=== PATIENT | female | born 1985 | race Caucasian/White ===

== ENCOUNTER → 2019-10-20 | Outpatient (CLI) | payer BC ==
[2019-10-20 17:15] LABS: Basophils # (A) 0.1 k/uL (0-0.2); Basophils % (A) 1 %; Eosinophils # (A) 0.1 k/uL (0-0.7); Eosinophils % (A) 2 %; HCT 43.3 % (34.0-46.0); HGB 14.1 gm/dL (11.4-16.0); Lymphocytes % (A) 33 %; MCH 30.4 pg (25.0-35.0); MCHC 32.7 g/dL (31.0-37.0); MCV 92.9 fL (80.0-100.0); Mean Platelet Volume 6.8; Monocytes # (A) 0.3 k/uL (0-1.0); Monocytes % (A) 5 %; Neutrophils # (A) 3.4 k/uL (1.3-7.7); Neutrophils % (A) 57 %; Platelet Count 338 k/uL (150-450); RBC 4.66 m/uL (3.80-5.40); RDW 12.3 % (11.5-15.5); WBC 5.9 k/uL (3.8-10.6)
== END ==
LOC: LABWHC1 16:38
PROVIDERS: ATTEND Obstetrics & Gynecology
DX: Z01.812 Encounter for preprocedural laboratory examination (principal)
CPT/HCPCS: 36415; 85025

== ENCOUNTER → 2019-11-24 | Outpatient (CLI) | payer BC ==
[2019-11-24 14:48] LABS: Basophils % (A) 1 %; Eosinophils # (A) 0.1 k/uL (0-0.7); Eosinophils % (A) 3 %; HCT 43.7 % (34.0-46.0); HGB 14.2 gm/dL (11.4-16.0); Lymphocytes # (A) 1.7 k/uL (1.0-4.8); Lymphocytes % (A) 36 %; MCH 31.4 pg (25.0-35.0); MCHC 32.6 g/dL (31.0-37.0); MCV 96.4 fL (80.0-100.0); Mean Platelet Volume 6.9; Monocytes # (A) 0.2 k/uL (0-1.0); Monocytes % (A) 4 %; Neutrophils # (A) 2.5 k/uL (1.3-7.7); Neutrophils % (A) 53 %; Platelet Count 280 k/uL (150-450); RBC 4.53 m/uL (3.80-5.40); RDW 12.5 % (11.5-15.5); WBC 4.6 k/uL (3.8-10.6)
== END | disposition home or self-care (01) ==
LOC: LABPAT 11-20 08:39
PROVIDERS: ATTEND Obstetrics & Gynecology
DX: Z01.812 Encounter for preprocedural laboratory examination (principal); O02.1 Missed abortion
CPT/HCPCS: 84702; 85025

== ENCOUNTER → 2019-11-25 | Day surgery (SDC) | payer BC ==
[2019-11-21 14:55] VITALS: BMI 18.2
--- NOTE | 2019-11-24 16:27 | HP ---
HISTORY AND PHYSICAL REASON FOR ADMISSION: Date of surgery is 11/25/2019. HISTORY: This is a 34-year-old 3, para 1-0-2-1 woman who desires permanent sterility. She is going to undergo a bilateral laparoscopic tubal occlusion with Filshie clips. She has been counseled extensively on other methods of long-term contraception and declines at this time. ALLERGY: PENICILLIN CAUSES RASH. MEDICATIONS: None. PAST MEDICAL HISTORY: Anemia, scoliosis, and esophageal ulcer. PAST SURGICAL HISTORY: EGD in 2012. Suction D and C 2015, cervical LEEP procedure 2017. PARALEGAL PAST HISTORY: She is a 3, para 1-0-2-1 with history of 1 term vaginal delivery and 1 missed AB with D and C and 1 spontaneous AB. She has a history of abnormal Pap smear in the past. No STDs. SOCIAL HISTORY: Negative for tobacco, alcohol, and drug use. She is single. FAMILY HISTORY: Significant for diabetes in a grandfather. REVIEW OF SYSTEMS: A 12-point review of systems negative. PHYSICAL EXAM: Vital signs: Height 5 feet, 8 inches, weight 122 pounds, blood pressure 102/70, heart rate 80. In general, a pleasant, slim female in no obvious distress. HEENT exam is unremarkable for no palpable lymphadenopathy or thyromegaly. CARDIOVASCULAR EXAM: Unremarkable for any detectable murmur. The heart is of regular rate and rhythm. The lungs are clear to auscultation bilaterally. On abdominal exam, the abdomen is slim, soft and nontender with no rebound, no guarding. On pelvic examination, she has normal female external genitalia without lesions or irritation. On bimanual examination, the uterus is small, freely mobile, and there are no adnexal abnormalities. Neurologic exam is grossly intact with no focal deficits. ASSESSMENT: 34-year-old 3, para 1-0-2-1 woman who desires permanent contraception. She is scheduled to undergo laparoscopic bilateral tubal occlusion with Filshie clips. Risks, benefits, and alternatives have been reviewed with the patient in detail. Risks include, but are not limited to, bleeding, transfusion, laparotomy, infection, damage to bowel, bladder, ureters and/or other pelvic and intraabdominal structures, tubal ligation failure, , ectopic . The patient understands these risks and agrees to proceed. She is scheduled for the above-named procedure on 11/25/2019. RHYS / NATACHA: [id number] /
[~2019-11-25] MED LIST: BUPIVACAINE (PF) 0.5% 30 ML VIAL SQ ONE; DEXAMETHASONE SOD PHOSPHATE 10 MG/ML 1 ML VIAL IV ONE; GLYCOPYRROLATE 0.2 MG/ML 2 ML VIAL ONE; KETOROLAC 30 MG/ML 1 ML VIAL ONE; LACTATED RINGERS 1,000 ML IV SCH; LIDOCAINE 1% 20 ML VIAL (10MG/ML) FOR IV START INTRADERMA ONE; LIDOCAINE 1% INJ 10MG/ML (20 ML MDV) ONE; MIDAZOLAM 2 MG/2 ML VIAL IV PRN; MIDAZOLAM 2 MG/2 ML VIAL ONE; NEOSTIGMINE 1 MG/ML 10 ML VIAL ONE; ONDANSETRON 4 MG/2 ML VIAL IVP ONE; PROPOFOL 10 MG/ML 20 ML VIAL IV ONE; Pre Op ABX Message 1 EACH MISC MISCELLANE ONE; ROCURONIUM BROMIDE 10 MG/ML 10 ML VIAL IV ONE; SCOPOLAMINE 1.5MG/72HR PATCH TRANSDERM ONE; fentaNYL (PF) 50 MCG/ML 2 ML AMP ONE
--- NOTE | 2019-11-25 08:06 | P.OP ---
Date of Procedure: 11/25/19 Preoperative Diagnosis: Desires permanent sterility Postoperative Diagnosis: Same Procedure(s) Performed: Laparoscopic bilateral tubal occlusion Anesthesia: POOL Surgeon: Tori Cornejo Estimated Blood Loss (ml): 2 IV fluids (ml): 600 Urine output (ml): 100 Pathology: none sent Condition: stable Disposition: PACU Indications for Procedure: Patient request for tubal occlusion Operative Findings: Normal pelvic anatomy Description of Procedure: After the patient was met in the preoperative holding area and all questions were answered, she was taken to the operating room where anesthetic was initiated without incident. A timeout procedure was undertaken. She was positioned, prepped and draped in the low lithotomy position. Bladder was drained for approximately 100 mL of clear urine. Speculum was placed on the vagina and an acorn uterine manipulator was inserted. Attention was then turned to the abdomen. A infraumbilical 5 mm incision was made. The abdomen was elevated and the varies needle was inserted. Saline drop test indicated intraperitoneal placement. CO2 gas was initiated with a initial filling pressure of 0. The abdomen was insufflated to a total filling pressure of 15 mm with CO2 gas. The varies needle was removed and the Scope was introduced under direct visualization with the blade less trocar. Intraperitoneal placement was confirmed. The patient was placed in Trendelenburg. Under direct visualization a suprapubic 7 mm port was placed using a blade less trocar. The bowel was swept out of the pelvis. Normal pelvic anatomy was identified. The Filshie clip flight dynamicist was then utilized to apply Filshie clips to the mid ampullary region of the right and left fallopian tubes completely transecting the tubes in each side. The suprapubic port was then removed the abdomen was desufflated and the infraumbilical port was removed. The skin was closed using 4-0 Vicryl suture. Quarter percent Marcaine was infused in each incision for a total of 10 mL's. The uterine manipulator was removed and the cervix was visualized. No active bleeding from the tenaculum site was noted. The patient was awoken from anesthetic without incident after sterile dressings were applied. Patient was transported to recovery area in stable condition. All counts reported to me as correct by the operating room staff.
[2019-11-25 08:16] VITALS: TEMP 97.6
[2019-11-25] MEDS: HYDROmorphone 0.5 MG/0.5 ML SYRINGE IVP PRN ×4 (08:33→08:59)
[2019-11-25] MEDS: fentaNYL (PF) 50 MCG/ML 2 ML AMP IVP ONE ×3 (09:08→09:28)
[2019-11-25 10:05] VITALS: PULSE 76
[2019-11-25 10:33] VITALS: BP 122/67; RESP 18
== END | disposition home or self-care (01) ==
LOC: OR 06:25
PROVIDERS: ATTEND Obstetrics & Gynecology
DX: Z30.2 Encounter for sterilization (principal); M41.9 Scoliosis, unspecified; D64.9 Anemia, unspecified; Z88.0 Allergy status to penicillin; Z79.3 Long term (current) use of hormonal contraceptives; Z87.19 Personal history of other diseases of the digestive system; Z98.890 Other specified postprocedural states; Z83.3 Family history of diabetes mellitus
CPT/HCPCS: 81025; 58671; J2250; J1100; J2710; J2405; J2001; J3010; J1885; J2704; J1170; 86850; 86900; 86901

== ENCOUNTER → 2025-01-09 | Outpatient (CLI) | payer BC ==
--- NOTE | 2025-01-09 12:47 | US ---
EXAMINATION TYPE: US abdomen limited DATE OF EXAM: 01/09/2025 COMPARISON: NONE CLINICAL INDICATION: Female, 39 years old with history of R60.9 EDEMA L72.0 EPIDERMAL CYST; palpable area x 2 months TECHNIQUE: several images acquired at patients area of concern FINDINGS: there is a 4.0x1.1x2.0cm likely lipoma at patients area of concern. Area is avascular and compressible. IMPRESSION: At the site of clinical concern lipoma is noted. [facility], , 01/09/2025 12:45 PM
== END | disposition home or self-care (01) ==
LOC: RADUSWWP 12:14
PROVIDERS: ATTEND Family Medicine
DX: L72.0 Epidermal cyst (principal); R60.0 Localized edema
CPT/HCPCS: 76705

== ENCOUNTER → 2025-01-20 | Outpatient (CLI) | payer BC | END | disposition home or self-care (01) | LOC: RADMRIMAIN 08:55 | PROVIDERS: ATTEND Obstetrics & Gynecology | DX: Z53.9 Procedure and treatment not carried out, unspecified reason (principal) ==